=== PATIENT | male | born 2000 | race Two or more races ===

== ENCOUNTER 2021-01-27 15:26 | Emergency (ER) | payer BC ==
[2021-01-27] MEDS ORDERED: Sodium Chloride 0.9% 10 ML Syringe FLUSH PRN (15:33)
[2021-01-27] MEDS ORDERED: Sodium Chloride 0.9% 2.5 ML Syringe FLUSH PRN (15:33)
[2021-01-27 16:58] LABS: BLOOD UREA NITROGEN,BUN 8 mg/dL (7.0-18.0); CARBON DIOXIDE,CO2 29.2 mmol/L (21.0-32.0); CHLORIDE,CL 105 mmol/L (98-107); GLUCOSE RANDOM 88 mg/dL (74-106); POTASSIUM,K 3.5 mmol/L (3.5-5.1); SODIUM,NA 144 mmol/L (136-148)
--- NOTE | 2021-01-27 17:09 | CR ---
INDICATION: Chest pain. TECHNIQUE: Chest 1 view. COMPARISON: None. FINDINGS: No focal consolidation, pleural effusion, or pneumothorax. Normal heart size and pulmonary vascularity. The bones are unremarkable. IMPRESSION: No acute cardiopulmonary findings. Dictated by Mansi Armstrong MD @ 01/27/2021 5:08:[address] Mansi Armstrong @ Jan 27 2021 5:08PM
--- NOTE | 2021-01-27 17:28 | EDM.PDOC ---
ED HPI GENERAL MEDICAL PROBLEM - General Chief Complaint: Chest Pain Stated Complaint: CHEST PAIN, HEART PAP. Time Seen by Provider: 01/27/21 15:44 - History of Present Illness INITIAL COMMENTS - FREE TEXT/NARRATIVE: CHIEF COMPLAINT(S): "Feels like my heart is skipping a beat every now and then." HISTORY OF PRESENT ILLNESS: This is a 20-year-old man without any significant past medical history who comes to the emergency department with a chief complaint of "feels like my heart is skipping a beat every now and then." The patient states that this is the third day he has been experiencing like his heart is skipping every now and then. He states that prior today he did not have any pain however today he started to experience some dull pain located underneath his left pectoralis muscle. He states that it lasted approximately 1 hour and he no longer has any left-sided pain. He denies any radiation of this pain. He states that he did not have any diaphoresis, nausea vomiting, numbness, tingling, or weakness. He denies any syncope. He denies any feeling of presyncope. He denies any cough, runny nose, congestion, fever or chills. He states that he did have some left shoulder pain located on the posterior aspe ct. He states that that has since resolved. He states that he does not have a family history of CAD or sudden onset at young age. 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 He states that he does drink caffeine but does not have excessive amounts and denies any illicit substance use other than tobacco vaping. He denies any recent travel, recent reddy rgery, prior history of DVT or PE. REVIEW OF SYSTEMS: Constitutional: Denies fever, chills. Eyes: Denies eye pain Ears, Nose, Mouth, & Throat: Denies earache Cardiovascular: Positive for palpitations and left sided chest pain Respiratory: Denies shortness of breath Gastrointestinal: Denies Nausea, vomiting, diarrhea, hematochezia. Genitourinary: Denies hematuria Skin:Denies a rash MSK: Denies joint pain Neurological: Denies blurred vision, numbness, tingling, weakness Psychiatric: Denies depression PAST MEDICAL HISTORY: As per history of present illness and as reviewed below otherwise noncontributory. SURGICAL HISTORY: As per history of present illness and as reviewed below otherwise noncontributory. SOCIAL HISTORY: As per history of present illness and as reviewed below otherwise noncontributory. FAMILY HISTORY: As per history of present illness and as reviewed below otherwise noncontributory. EXAMINATION OF ORGAN SYSTEMS/BODY AREAS: Constitutional: Blood pressure is 149/73, heart rate 98, respiratory rate 17 with an oxygen saturation of 9 9% on room air. Temperature 35.9 temporally General: Young well-appearing man who is in no acute distress Psychiatric: Appropriate mood and affect. Eyes: No scleral icterus or conjunctival erythema ENMT: Moist mucous membranes. No pharyngeal erythema Cardiovascular: Regular, rate, and rhythm. No gallops, murmurs, or rubs. Bi lateral upper extremity pulses symmetric and intact. No peripheral edema. No JVD. Respiratory: Lungs clear to auscultation bilaterally. No wheezes, rales, or rhonchi. Gastrointestinal: Soft, non-tender, non-distended. Normoactive bowel sounds Genitourinary: No suprapubic tenderness Musculoskeletal: Normal range of motion. Skin: No lesions or abrasions. Neurological: Alert, GCS 15 MEDICAL DECISION MAKING AND COURSE IN THE ED WITH INTERPRETATION/REVIEW OF DIAGNOSTIC STUDIES: This is a 20-year-old and without any significant past medical history who comes to the emergency department with palpitations and left-sided pectoralis muscle tenderness. The patient at this time is currently low risk for ACS and pulmonary embolism. We will obtain a chest x-ray to evaluate for pneumothorax or any other abnormality. EKG was obtained which did not reveal any acute signs of ischemia. We will obtain CBC, CMP, TSH. I do not believe this is cardiac in nature and likely musculoskeletal strain. Will repeat EKG while waiting for labs. PERC Rule Age (>/=50): No (0) HR (>/=100): No (0) SaO2 on RA <95%: No (0) Unilateral Leg Swelling: No (0) Hemoptysis: No (0) Surgery/Trauma in last month requiring general anesthesia: No (0) Prior PE or DVT: : No (0) Hormone Use: No (0) PERC negative Since patient is PERC negative and pre-test probability <15%, there is no need for more intensive workup, <2% chance of PE Laboratory: CBC is unremarkable. CMP is unremarkable. TSH is normal. The radiological images were viewed by myself along with reading the report from the radiologist. Chest x-ray does not reveal any acute cardiopulmonary process. Time: 1528 Twelve-lead EKG interpreted by myself. Normal sinus rhythm at a rate of 81beats per minute. Normal axis. GA interval is 125ms. QRS duration is 104ms. ST segments are normal without elevations or depressions. T wave inversion in lead III no Q waves present. Hypertrophy not noted. No prior EKGs in our system . Interpretation: Sinus rhythm with nonspecific T wave inversion Time: 1723 Twelve-lead EKG interpreted by myself. Normal sinus rhythm at a rate of 66beats per minute. Normal axis. GA interval is 136ms. QRS duration is 104ms. ST segments are normal without elevations or depressions. T wave inversion in lead III no Q waves present. Hypertrophy not noted. No changes demonstrated from prior EKG dated today. Interpretation: Sinus rhythm with nonspecific T wave inversion After labs and a period of observation I did discuss with patient that he would be stable for discharge. I discussed that at this time he is low risk for ACS however given the palpitations I would limit caffeine usage and I discussed with him that I do believe that the pain he is experiencing under his left pectoralis muscle that is now resolved could likely be due to muscle strain. I discussed that he could use Tylenol and Motrin for pain relief. I discussed that if he had any worsening of symptoms such as worsening chest pain, passing out, shortness of breath he should return to the emergency department. He was amenable discharge at this time and had no further questions. DISPOSITION: The patient was discharged home in stable condition. The patient will follow up with primary care physician within 1 week CONDITION: Fair PROCEDURES: None FINAL IMPRESSION(S)/DIAGNOSES: 1. Acute palpitations 2. Acute left pectoralis muscle tenderness Kyler Fry M.D. left chest Pain Score (Numeric/FACES): 2 - Related Data Allergies Allergy/AdvReac Type Severity Reaction Status Date / Time No Known Allergies Allergy Verified 01/27/21 15:38 Home Meds: Home Meds . [No Known Home Meds] 01/27/21 [History] Social & Family History - Family History Family Medical History: No Pertinent Family History - Caffeine Use Caffeine Use: Reports: None - Recreational Drug Use Recreational Drug Use: No ED ROS GENERAL - Review of Systems Review Of Systems: See Below ED EXAM, GENERAL - Physical Exam Exam: See Below Course - Vital Signs Last Recorded V/S: Last Vital Signs Temp 36.6 C 01/27/21 17:44 Pulse 72 01/27/21 17:44 Resp 16 01/27/21 17:44 BP 123/51 L 01/27/21 17:44 Pulse Ox 99 01/27/21 17:44 - Orders/Labs/Meds Labs: Laboratory Tests 01/27/21 01/27/21 Range/Units 15:34 16:15 WBC 7.24 (4.0-11.0) K/uL RBC 4.98 (4.50-5.90) M/uL Hgb 15.8 (13.0-17.0) g/dL Hct 46.3 (38.0-50.0) % MCV 93.0 (80.0-98.0) fL MCH 31.7 (27.0-32.0) pg MCHC 34.1 (31.0-37.0) g/dL RDW Std Deviation 42.6 (28.0-62.0) fl RDW Coeff of Renetta 13 (11.0-15.0) % Plt Count 237 (150-400) K/uL MPV 11.60 (7.40-12.00) fL Neut % (Auto) 56.4 (48.0-80.0) % Lymph % (Auto) 35.6 (16.0-40.0) % [place] % (Auto) 6.9 (0.0-15.0) % Eos % (Auto) 1.0 (0.0-7.0) % Baso % (Auto) 0.1 (0.0-1.5) % Neut # (Auto) 4.1 (1.4-5.7) K/uL Lymph # (Auto) 2.6 H (0.6-2.4) K/uL [place] # (Auto) 0.5 (0.0-0.8) K/uL Eos # (Auto) 0.1 (0.0-0.7) K/uL Baso # (Auto) 0.0 (0.0-0.1) K/uL Nucleated RBC % 0.0 /100WBC Nucleated RBCs # 0 K/uL Sodium 144 (136-148) mmol/L Potassium 3.5 (3.5-5.1) mmol/L Chloride 105 (98-107) mmol/L Carbon Dioxide 29.2 (21.0-32.0) mmol/L BUN 8 (7.0-18.0) mg/dL Creatinine 0.8 (0.8-1.3) mg/dL Est Cr Clr Drug Dosing 140.57 mL/min Estimated GFR (MDRD) > 60.0 ml/min Glucose 88 (74-106) mg/dL Calcium 8.8 (8.5-10.1) mg/dL Total Bilirubin 0.5 (0.2-1.0) mg/dL AST 19 (15-37) IU/L ALT 23 (14-63) IU/L Alkaline Phosphatase 71 (46-116) U/L Total Protein 7.2 (6.4-8.2) g/dL Albumin 3.9 (3.4-5.0) g/dL Globulin 3.3 (2.6-4.0) g/dL Albumin/Globulin Ratio 1.2 (0.9-1.6) TSH 3rd Generation 0.45 (0.36-3.74) uIU/mL Meds: Medications Discontinued Medications Generic Name Dose Route Start Last Admin Trade Name Freq PRN Reason Stop Dose Admin Sodium Chloride 10 ml 01/27/21 15:33 01/27/21 16:01 Sodium Chloride 0.9% 10 Ml Syringe FLUSH 10 ml ASDIRECTED PRN Administration Keep Vein Open Sodium Chloride 2.5 ml 01/27/21 15:33 01/27/21 16:01 Sodium Chloride 0.9% 2.5 Ml Syringe FLUSH 2.5 ml ASDIRECTED PRN Administration Keep Vein Open Departure - Departure Time of Disposition: 17:27 Disposition: Home, Self-Care 01 Condition: Fair Clinical Impression: Palpitations, Pectoralis muscle strain - Discharge Information *PRESCRIPTION DRUG MONITORING PROGRAM REVIEWED*: No *COPY OF PRESCRIPTION DRUG MONITORING REPORT IN PATIENT ERWIN: No Instructions: Nonspecific Chest Pain, Adult, [id number], Palpitations, [id number], Muscle Strain Referrals: PCP,None [Primary Care Provider] - Forms: ED Department Discharge Additional Instructions: You evaluate today on an emergent basis. At this time your work-up was negative. It is uncertain as to what is causing the sensation you are feeling with a racing heartbeat however I do recommend that you follow-up with primary care physician or they can do outpatient work-up if necessary. The dullness and tenderness under your left pectoralis muscle and left shoulder is likely due to musculoskeletal pain versus strain. I do recommend use of Tylenol and Motrin and if this does recur to use ice to the area 20 minutes 4 times a day. If you have any new or worsening symptoms such as chest pain, shortness of breath, or passing out please return to the emergency department. [facility] - [facility] [address] [place] [id number] [id number] The patient is informed of any results of their evaluation and diagnostic workup and all questions are answered. They are given discharge instructions and return precautions. The patient is stable for discharge. The patient states they understand and agree with the plan and that they will return if their symptoms get worse or if they have any new concerns. The following information is given to patients seen in the emergency department who are being discharged to home. This information is to outline your options for follow-up care. We provide all patients seen in our emergency department with a follow-up referral. The need for follow-up, as well as the timing and circumstances, are variable depending upon the specifics of your emergency department visit. If you don't have a primary care physician on staff, we will provide you with a referral. We always advise you to contact your personal physician following an emergency department visit to inform them of the circumstance of the visit and for follow-up with them and/or the need for any referrals to a consulting specialist. The emergency department will also refer you to a specialist when appropriate. This referral assures that you have the opportunity for follow-up care with a specialist. All of these measure are taken in an effort to provide you with optimal care, which includes your follow-up. Under all circumstances we always encourage you to contact your private physician who remains a resource for coordinating your care. When calling for follow-up care, please make the office aware that this follow-up is from your re cent emergency room visit. If for any reason you are refused follow-up, please contact the [facility] Emergency Department at and asked to speak to the emergency department charge nurse. Sepsis Event Note (ED) - Evaluation Sepsis Screening Result: No Definite Risk
== END 2021-01-27 17:47 | disposition home or self-care (01) ==
LOC: MW.ED 15:26
DX: S29.011A Strain of muscle and tendon of front wall of thorax, initial encounter (principal); R00.2 Palpitations; X58.XXXA Exposure to other specified factors, initial encounter
CPT/HCPCS: 36415; 71045; 71045-26; 80053; 84443; 85025; 93005; 93010; 99284; 99285-25